=== PATIENT | male | born 1995 | race Caucasian/White ===

== ENCOUNTER 2018-07-25 13:53 | Emergency (ER) | payer BC ==
[~2018-07-25] VITALS: Ht 193 cm; Wt 68.0 kg
[2018-07-25] MEDS ORDERED: LORazepam 2 mg/ml vial IV ONE (15:15)
[2018-07-25] MEDS ORDERED: normal saline 1000ML IV soln IVB ONE (15:15)
[2018-07-25] MEDS ORDERED: metoclopramide 5 mg/ml inj IV ONE (15:15)
[2018-07-25] MEDS ORDERED: ketorolac trometh. 30mg/ml inj. IV ONE (15:45)
[2018-07-25 16:34] VITALS: BP 118/60
== END 2018-07-25 16:48 | disposition home or self-care (01) ==
LOC: ER 13:55
DX: G43.909 Migraine, unspecified, not intractable, without status migrainosus (principal); R11.2 Nausea with vomiting, unspecified; H53.149 Visual discomfort, unspecified
CPT/HCPCS: 70450; 96361; 96374; 96375; 99284; J1885; J2060; J2765; J7030